=== PATIENT | male | born 1985 | race Caucasian/White ===

== ENCOUNTER 2017-11-07 10:01 | Emergency (ER) | payer OTHER ==
[~2017-11-07] VITALS: Ht 167.6 cm; Wt 77.5 kg
[2017-11-07 10:01] VITALS: BP 142/101; PULSE 70; RESP 18; TEMP 98.3; O2SAT 100
[~2017-11-07 10:01] MED LIST: Z.0.NO CURRENT MEDS
[2017-11-07] MEDS ORDERED: ONDANSETRON HCL 4 MG/2 ML VIAL IV PUSH ONE (10:15)
[2017-11-07] MEDS ORDERED: MORPHINE SULFATE 8 MG/ML INJ IV PUSH ONE (10:15)
[2017-11-07 10:35] LABS: AUTOMATED NEUTROPHIL # 4.5 TH/MM3 (1.8-7.7); BASOPHIL # 0.1 TH/MM3 (0-0.2); BASOPHIL % 0.6 % (0.0-2.0); EOSINOPHIL % 0.5 % (0.0-4.0); HEMATOCRIT 43.2 % (39.0-51.0); HEMOGLOBIN 15.3 GM/DL (13.0-17.0); LYMPH % 40.2 % (9.0-44.0); LYMPHOCYTE # 3.5 TH/MM3 (1.0-4.8); MEAN CELL VOLUME 83.7 FL (80.0-100.0); MEAN CORPUSCULAR HEMOGLOBIN 29.7 PG (27.0-34.0); MEAN CORPUSCULAR HGB CONC 35.5 % (32.0-36.0); MEAN PLATELET VOLUME 8.7 FL (7.0-11.0); MONO % 8.1 % (0.0-8.0); MONOCYTE # 0.7 TH/MM3 (0-0.9); NEUT % 50.6 % (16.0-70.0); PLATELET COUNT 392 TH/MM3 (150-450); RED BLOOD COUNT 5.16 MIL/MM3 (4.50-5.90); RED CELL DISTRIBUTION WIDTH 13.1 % (11.6-17.2); WHITE BLOOD COUNT 8.8 TH/MM3 (4.0-11.0)
[2017-11-07 10:49] LABS: INTERNATIONAL NORMALIZED RATIO 1.1 RATIO; PROTHROMBIN TIME - PATIENT 10.7 SEC (9.8-11.6)
[2017-11-07 10:56] LABS: BICARBONATE 26.2 MEQ/L (21.0-32.0); CALCIUM 9.5 MG/DL (8.5-10.1); CREATININE 1.16 MG/DL (0.60-1.30)
[2017-11-07] MEDS ORDERED: KETOROLAC TROMETHAMINE 30 MG/ML (IVP) VIAL IV PUSH ONE (11:00)
--- NOTE | 2017-11-07 11:02 | PD ---
HPI Chief Complaint: Fall Time Seen by Provider: 10:03 Travel History International Travel<30 days: No Contact w/Intl Traveler<30days: No Traveled to known affect area: No History of Present Illness HPI This is a 32-year-old male with no past medical history, who is brought as a straight back from the front triage after he reportedly fell off his work truck and landed on his left lateral ribs. Patient states he feels movement in his rib cage when he breathes and moves. He states that when he initially fell, he was short of breath as though he had the wind knocked out of him. He states shortly thereafter he started noticing the pain and the abnormal rib feeling. The patient still reports pain and pain with breath. He denies any true shortness of breath other than the discomfort with respirations. There are no other injuries. PFSH Social History Alcohol Use: No Tobacco Use: No Allergies-Medications (Allergen,Severity, Reaction): Coded Allergies: Penicillins (Verified Allergy, Unknown, 11/07/17) Reported Meds & Prescriptions Reported Meds & Active Scripts Active Flexeril (Cyclobenzaprine HCl) 10 Mg Tab 10 Mg PO TID Lorcet Plus 7.5-325 mg (Hydrocodone-Acetaminophen) 7.5 Mg-325 Mg Tab 1 Tab PO Q6H PRN Reported No Current Meds (Miscellaneous Medication) [facility] Review of Systems Except as stated in HPI: all other systems reviewed are Neg General / Constitutional: No: Fever, Chills HENT: No: Headaches, Neck Pain Cardiovascular: Positive: Chest Pain or Discomfort, No: Palpitations Respiratory: Positive: Shortness of Breath, Pleuritic Pain, No: Cough, Hemoptysis Gastrointestinal: No: Nausea, Vomiting, Abdominal Pain (Left sided) Genitourinary: No: Pelvic Pain, Flank Pain Musculoskeletal: Positive: Limited ROM (Left rib secondary to the pain), Pain, No: Weakness Skin: Positive Other Neurologic: No: Weakness, Headache, Change in Mentation, Incontinence Physical Exam Narrative GENERAL: Well-nourished, well-developed patient in mild to moderate discomfort.. SKIN: Focused skin assessment warm/dry. HEAD: Normocephalic/atraumatic. EYES: No scleral icterus. No injection or drainage. NECK: Supple, trachea midline. CARDIOVASCULAR: Regular rate and rhythm without murmurs, gallops, or rubs. RESPIRATORY: Breath sounds equal bilaterally. The patient is splinting with respirations. There is tenderness to palpation on his left lateral ribs at the level of 4 and 5. There is no obvious flail segments. There is some mild crepitance noted on palpation. GASTROINTESTINAL: Abdomen soft, non-tender, nondistended. MUSCULOSKELETAL: No cyanosis, or edema. BACK: Tenderness to palpation left lateral rib area as above. No posterior spinous process tenderness. NEUROLOGICAL: Awake and alert. Cranial nerves II through XII intact. Motor and sensory grossly within normal limits. Five out of 5 muscle strength in all muscle groups. Normal speech. Data Data Last Documented VS Vital Signs Date Time Temp Pulse Resp B/P (MAP) Pulse Ox O2 Delivery O2 Flow Rate FiO2 11/07/17 12:15 68 16 137/83 (101) 98 Room Air 11/07/17 10:01 98.3 Orders Orders Complete Blood Count With Diff (11/07/17 10:03) Basic Metabolic Panel (Bmp) (11/07/17 10:03) Prothrombin Time / Inr (Pt) (11/07/17 10:03) Act Partial Throm Time (Ptt) (11/07/17 10:03) Iv Access Insert/Monitor (11/07/17 10:03) Ecg Monitoring (11/07/17 10:03) Oximetry (11/07/17 10:03) Ondansetron Inj (Zofran Inj) (11/07/17 10:15) Morphine Inj (Morphine Inj) (11/07/17 10:15) Ribs, Uni (W/Exp Cxr-Min 3vw) (11/07/17 10:14) Ct Thorax/ Chest Wo Iv Contras (11/07/17 10:49) Ketorolac Inj (Toradol Inj) (11/07/17 11:00) Resp Incentive Spirometry (11/07/17 ) Labs Laboratory Tests Test 11/07/17 10:05 White Blood Count 8.8 TH/MM3 Red Blood Count 5.16 MIL/MM3 Hemoglobin 15.3 GM/DL Hematocrit 43.2 % Mean Corpuscular Volume 83.7 FL Mean Corpuscular Hemoglobin 29.7 PG Mean Corpuscular Hemoglobin Concent 35.5 % Red Cell Distribution Width 13.1 % Platelet Count 392 TH/MM3 Mean Platelet Volume 8.7 FL Neutrophils (%) (Auto) 50.6 % Lymphocytes (%) (Auto) 40.2 % Monocytes (%) (Auto) 8.1 % Eosinophils (%) (Auto) 0.5 % Basophils (%) (Auto) 0.6 % Neutrophils # (Auto) 4.5 TH/MM3 Lymphocytes # (Auto) 3.5 TH/MM3 Monocytes # (Auto) 0.7 TH/MM3 Eosinophils # (Auto) 0.0 TH/MM3 Basophils # (Auto) 0.1 TH/MM3 CBC Comment DIFF FINAL Differential Comment Prothrombin Time 10.7 SEC Prothromb Time International Ratio 1.1 RATIO Activated Partial Thromboplast Time 23.6 SEC Blood Urea Nitrogen 11 MG/DL Creatinine 1.16 MG/DL Random Glucose 112 MG/DL Calcium Level 9.5 MG/DL Sodium Level 139 MEQ/L Potassium Level 3.8 MEQ/L Chloride Level 105 MEQ/L Carbon Dioxide Level 26.2 MEQ/L Anion Gap 8 MEQ/L Estimat Glomerular Filtration Rate 74 ML/MIN MDM Medical Decision Making Medical Screen Exam Complete: Yes Emergency Medical Condition: Yes Interpretation(s) Last [address] 11/07/17 1049 Signed Impressions: Service Date/Time: Tuesday, November 07, 2017 12:14 - CONCLUSION: 1. Acute left fifth, sixth and seventh anterior rib fracture with mild displacement. No pneumothorax or effusion. Brendan Gomez MD Ribs X-Ray 11/07/17 1014 Signed Impressions: Service Date/Time: Tuesday, November 07, 2017 10:23 - CONCLUSION: 1. Acute left anterior seventh rib fracture with overlap. 2. No pneumothorax. Ravin Hidalgo Jr., MD Differential Diagnosis Left-sided rib fracture versus pneumothorax versus hemothorax Narrative Course 32-year-old male status post mechanical fall off his work truck onto his left side. Patient has left fifth sixth and seventh rib fractures. The patient has no evidence of pneumothorax or pulmonary contusion. There is no evidence of hemothorax. The patient will be discharged with an incentive spirometer. He also be given a prescription for Lorcet 7.5's. He is instructed to take those for the next few days. He is instructed to use the incentive spirometer 3-4 times daily. He is instructed to return if he develops any worsening pain, fevers chills, difficulty breathing or any other reason. He is told to use ice to the affected area 2-3 times for the next 2 days then use moist heat. Avoid heavy lifting. Diagnosis Primary Impression: Acute left fifth sixth and seventh rib fractures Additional Impression: Status post mechanical fall Patient Instructions: Narcotic given in the ED Additional Instructions: Avoid heavy lifting. Ice 2-3 times daily 2 days then moist heat. Use incentive spirometer at least 4 times daily. Return if increased pain, fevers chills, difficulty breathing, or any other reason that concerns you. Motrin 600 -800 mg every 6-8 hours for the next 2-3 days. Please take with food. Med/Other Pt SpecificInfo: Prescription(s) given Scripts Cyclobenzaprine (Flexeril) 10 Mg Tab 10 MG PO TID for Muscle Spasm, #21 TAB 0 Refills Prov: Artem Rojas MD 11/07/17 Hydrocodone-Acetaminophen (Lorcet Plus 7.5-325 mg) 7.5 Mg-325 Mg Tab 1 TAB PO Q6H Y for PAIN, #20 TAB 0 Refills Prov: Artem Rojas MD 11/07/17 Disposition: 01 DISCHARGE HOME Condition: Stable Artem Rojas MD Nov 07, 2017 11:02
--- NOTE | 2017-11-07 11:06 | RADRPT ---
EXAM DATE/TIME: 11/07/2017 10:23 [facility] COMPARISON: No previous studies available for comparison. INDICATIONS : Left side rib pain. Fell off of trailer and hit left side. MEDICAL HISTORY : None. SURGICAL HISTORY : None. ENCOUNTER: Initial ACUITY: 1 day PAIN SCORE: 10/10 LOCATION: Left middle ribs. FINDINGS: Multiple views of the left ribs were performed. There is an acute fracture involving anterior aspect s of the left seventh rib. There is overlap. No pneumothorax.. No destructive lesions or areas of pe riosteal thickening are seen. Expiratory view of the chest is negative for pneumothorax. The medias tinal structures are midline. CONCLUSION: 1. Acute left anterior seventh rib fracture with overlap. 2. No pneumothorax. Ravin Hidalgo Jr., MD on November 07, 2017 at 11:01 Board Certified Radiologist. This report was verified electronically.
[2017-11-07 12:15] VITALS: BP 137/83; PULSE 68; RESP 16; O2SAT 98
--- NOTE | 2017-11-07 12:41 | RADRPT ---
EXAM DATE/TIME: 11/07/2017 12:14 [facility] COMPARISON: No previous studies available for comparison. INDICATIONS : Fall 5 feet, left sided rib pain. RADIATION DOSE: 12.18 CTDIvol (mGy) MEDICAL HISTORY : None SURGICAL HISTORY : None. ENCOUNTER: Initial ACUITY: 1 day PAIN SCALE: 8/10 LOCATION: Left chest TECHNIQUE: Volumetric scanning of the chest was performed. Using automated exposure control and adjustment of t he mA and/or kV according to patient size, radiation dose was kept as low as reasonably achievable to obtain optimal diagnostic quality images. DICOM format image data is available electronically for r eview and comparison. Follow-up recommendations for detected pulmonary nodules are based at a minimum on nodule size and pa tient risk factors according to Fleischner Society Guidelines. FINDINGS: There is a left fifth, sixth and seventh anterior rib fracture with mild displacement. The there is n o pneumothorax or pleural effusion. No mediastinal hematoma. No other fractures are identified. No ad enopathy. CONCLUSION: 1. Acute left fifth, sixth and seventh anterior rib fracture with mild displacement. No pneumothorax or effusion. Brendan Gomez MD on November 07, 2017 at 12:35 Board Certified Radiologist. This report was verified electronically.
[2017-11-07] MEDS ORDERED: CYCL10TA PO (13:24)
[2017-11-07] MEDS ORDERED: HYDR-3577 PO (13:24)
[2017-11-07 13:32] VITALS: BP 135/87; PULSE 76; RESP 16; O2SAT 100
[2017-11-07 13:46] VITALS: BP 132/88; PULSE 64; RESP 16; O2SAT 100
== END 2017-11-07 13:55 | disposition home or self-care (01) ==
LOC: NEPC 10:01
DX: S22.42XA Multiple fractures of ribs, left side, initial encounter for closed fracture (principal); V89.9XXA Person injured in unspecified vehicle accident, initial encounter; Z88.0 Allergy status to penicillin
CPT/HCPCS: 71101; 71250; 80048; 85025; 85610; 85730; 94150; 96374; 96375; 99285; J2270; J2405